=== PATIENT | male | born 1985 | race Caucasian/White ===

== ENCOUNTER 2017-01-09 03:50 | Inpatient (IN) | payer MEDICAID ==
[~2017-01-09] VITALS: Ht 180.3 cm; Wt 59.0 kg
[~2017-01-09 03:50] MED LIST: ELA10 PO; FAMO-90 PO; HYDROCODONE/ACETAMINOPHEN 5-32; ONDA4ODT1 SL; OXYC10TE14 PO
[2017-01-09 03:57] VITALS: BP 124/71
--- NOTE | 2017-01-09 04:03 | NUR ---
PT TAKEN TO BED 8
--- NOTE | 2017-01-09 04:03 | NUR ---
PATIENT PRESENTS TO ED WITH C/O MID AB PAIN RADIATING TO THE BACK X 3 DAYS . PT STATES PAIN IS CONSTANT, NON RADIATING. PT ALSO STATES HE WAS DX WITH PANCREATITIS 5 YEARS AGO. PT DENIES N/V/D; SKIN IS PINK/WARM/DRY; AAOX4 WITH EVEN AND STEADY GAIT; LUNGS CLEAR BL; HR EVEN AND REGULAR; PT DENIES ANY FEVER, CP, SOB, OR COUGH AT THIS TIME; PATIENT STATES PAIN OF 9/10 AT THIS TIME; VSS; PATIENT POSITIONED FOR COMFORT; HOB ELEVATED; BEDRAILS UP X2; BED DOWN. ER MD MADE AWARE OF PT STATUS.
[2017-01-09] MEDS ORDERED: NACL 0.9% 1,000 ML IV ONE ×2 (04:33→05:00)
[2017-01-09] MEDS ORDERED: MORPHINE SULFATE 4 MG/ML SYR IVP ONE (04:35)
[2017-01-09] MEDS ORDERED: ONDANSETRON 4 MG/2 ML VIAL IVP ONE (04:35)
[2017-01-09 04:41] LABS: BASOPHILS # (AUTO) 0.4 K/uL (0.00-0.22); BASOPHILS % (AUTO) 4.8 % (0.0-2.0); EOSINOPHILS # (AUTO) 0.2 K/uL (0-0.4); EOSINOPHILS % (AUTO) 2.5 % (0.0-4.0); HEMATOCRIT 49.7 % (36-52); LYMPHOCYTES # (AUTO) 1.8 K/uL (2.0-11.5); LYMPHOCYTES % (AUTO) 23.3 % (20.5-51.1); MEAN CORPUSCULAR HEMOGLOBIN 29 pg (27-31); MEAN CORPUSCULAR HGB CONC 32 g/dL (33-37); MEAN CORPUSCULAR VOLUME 90 fL (80-94); MONOCYTES # (AUTO) 0.8 K/uL (0.8-1.0); MONOCYTES % (AUTO) 10.9 % (1.7-9.3); NEUTROPHILS # (AUTO) 4.3 K/uL (1.8-7.7); NEUTROPHILS % (AUTO) 58.5 % (42.2-75.2); PLATELET COUNT (AUTO) 281 K/uL (140-450); RED BLOOD CELL COUNT(AUTO) 5.53 MIL/uL (4.20-6.10); RED CELL DISTRIBUTION WIDTH 12.7 % (11.6-13.7); WHITE BLOOD COUNT (AUTO) 7.5 K/uL (4.8-10.8)
[2017-01-09 04:56] LABS: ALBUMIN 4.6 g/dL (3.4-5.0); ANION GAP 10.8 (8-16); CARBON DIOXIDE 30.7 mmol/L (21-32); POTASSIUM 3.5 mmol/L (3.5-5.1); TOTAL BILIRUBIN 0.7 mg/dL (0.0-1.0)
[2017-01-09] MEDS ORDERED: KETOROLAC 30 MG/ML VIAL IVP ONE (05:10)
--- NOTE | 2017-01-09 05:19 | NUR ---
Patient will be admitted to care of DR PLUMMER. Admited to MS 112A. Will go to room 112A. Belongings list completed. Report to PAT ROWLEY .
[2017-01-09] MEDS ORDERED: MAGNESIUM HYDROXIDE 2400 MG/30 ML UDC PO PRN (05:20)
[2017-01-09] MEDS ORDERED: MORPHINE SULFATE 4 MG/ML SYR IVP PRN (05:20)
[2017-01-09] MEDS ORDERED: ACETAMINOPHEN 325 MG TAB PO PRN (05:20)
[2017-01-09] MEDS ORDERED: oxyCODONE 10 MG TABER PO SCH ×2 (05:20→07:50)
[2017-01-09] MEDS ORDERED: ONDANSETRON 4 MG ODT SL PRN (05:20)
[2017-01-09] MEDS ORDERED: LORazepam 2 MG/ML VIAL IVP PRN (05:20)
[2017-01-09] MEDS ORDERED: ONDANSETRON 4 MG/2 ML VIAL IVP PRN (05:20)
[2017-01-09] MEDS ORDERED: MORPHINE SULFATE 2 MG/ML SYR IVP PRN (05:20)
--- NOTE | 2017-01-09 05:45 | NUR ---
PATIENT ADMITTED TO THE UNIT FROM ED VIA GURNEY. PATIENT ABLE TO AMBULATE TO BED, STEADY GAIT. PATIENT IS AAOX4 ON ROOM AIR, NO SOB OR SIGN OF DISTRESS, VITAL SIGNS STABLE, SKIN INTACT, IV TO RIGHT AC PATENT AND INTACT. PATIENT C/O ABDOMINAL PAIN 01/28. STATED MORPHINE GIVEN IN THE ER DOES NOT HELP AND WANTS DILAUDED THAT HAS HELPED HIM IN THE PAST. ORIENTED PATIENT TO ROOM AND CALL LIGHT. DISCUSSED PLAN OF CARE WITH PATIENT, PT VERBALIZED UNDERSTANDING, CALL LIGHT WITHIN REACH. WILL CONTINUE TO MONITOR.
[2017-01-09] MEDS: DEXT 5% /NACL 0.9% 1,000 ML IV SCH ×2 (05:57→15:24)
[2017-01-09 06:00] VITALS: BP 127/46
--- NOTE | 2017-01-09 07:13 | NUR ---
ASSUMED CONTINUITY OF CARE. NO SIGNS AND SYMPTOMS OF ACUTE DISTRESS NOTED. INITIAL ASSESSMENT DONE. KEEP COMFORTABLE ON BED. EXPLAINED DIAGNOSIS, PLAN OF CARE, PAIN MANAGEMENT TEACHING, USE OF CALL LIGHT/BED/TV/BATHROOM. VERBALIZED UNDERSTANDING. CALL LIGHT WITHIN REACH.
--- NOTE | 2017-01-09 07:13 | NUR ---
ENDORSED PATIENT TO DAY RN AT BEDSIDE, PATIENT IN STABLE CONDITION.
--- NOTE | 2017-01-09 07:17 | NUR ---
BEDSIDE REPORT GIVEN TO KIMBER YANCEY. IVF INFUSING WELL. IN STABLE CONDITION.
[2017-01-09 07:37] LABS: PROTHROMBIN TIME 11.8 secs (10.8-13.4)
[2017-01-09 07:39] LABS: BARBITURATE, URINE NEG. ng/ml (NEG <=200); BENZODIAZEPINE, URINE NEG. ng/mL (NEG <=200); CANNABINOID, URINE POS. ng/mL (NEG <=50); COCAINE, URINE NEG. ng/mL (NEG <=300); OPIATE, URINE NEG. ng/mL (NEG <=2000); PHENCYCLIDINE SCREEN,URINE NEG. ng/mL (NEG <=25)
[2017-01-09 07:53] LABS: SALICYLATE < 2.8 mg/dL (2.8-20.0)
[2017-01-09 07:54] LABS: ACETAMINOPHEN < 0.5 ug/ml (10-30)
--- NOTE | 2017-01-09 07:59 | NUR ---
Patient's Plan of Care was discussed and reviewed with ELECTRONICS ASSEMBLER AND TESTER: BERTIN PATTON
[2017-01-09 08:00] VITALS: BP 119/82
--- NOTE | 2017-01-09 08:05 | NUR ---
PATIENT HAS BEEN SCREENED AND CATEGORIZED HIGH NUTRITION RISK. PATIENT WILL BE SEEN WITHIN 1-2 DAYS OF ADMISSION. 01/09/17-01/10/[address]
[2017-01-09] MEDS: FAMOTIDINE 20 MG TAB PO SCH ×2 (08:34→21:28)
[2017-01-09] MEDS ORDERED: HYDROmorphone 1 MG/ML AMP IVP SCH (09:30)
--- NOTE | 2017-01-09 10:09 | NUR ---
CM NOTE INITIAL REVIEW FAXED TO [facility] [phone] PH DEPT [phone] AND TO [facility] [phone]
[2017-01-09 12:00] VITALS: BP 132/82
--- NOTE | 2017-01-09 12:30 | NUR ---
WILLIAM MIXON CAME, CHECKED PT. CHART AND SEEN PT..
--- NOTE | 2017-01-09 13:52 | NUR ---
WENT TO CT VIA WHEELCHAIR. NO ACUTE DISTRESS NOTED.
--- NOTE | 2017-01-09 15:10 | NUR ---
01/09/17 RD INITIAL ASSESSMENT COMPLETED PLEASE REFER TO NUTRITION ASSESSMENT UNDER CARE ACTIVITY FOR ESTIMATED NUTRITIONAL NEEDS. 1. WHEN MEDICALLY FEASIBLE, CONSIDER INITIATING PO DIET TO START ON CLEAR LIQUID AND ADVANCE TOLERATED TO REGULAR DIET + HEALTH SHAKE 1XDAILY 2. RD TO FOLLOW UP WITHIN 2-3 DAYS; HIGH RISK ISMAEL LEE RD
[2017-01-09] MEDS: HYDROmorphone 1 MG/ML AMP IVP PRN ×2 (15:18→21:21)
--- NOTE | 2017-01-09 15:45 | NUR ---
DR. WARREN CAME, CHECKED PT. CHART, AND SEEN PT..
--- NOTE | 2017-01-09 19:20 | NUR ---
RECD. SITTING ON BED, AWAKE, A/OX4. RESPIRATION EVEN AND UNLABORED. IV OF D5NS AT 100 ML/HR INFUSING, RIGHT AG G18. PLAN OF CARE FOR THE SHIFT DISCUSSED. VERBALIZED UNDERSTANDING. PAIN IN THE ABDOMEN . OFFERED NORCO BUT REFUSED. STATED WILL WAIT FOR THE PAIN SHOT. FAMILY AT THE BEDSIDE.
[2017-01-09 20:00] VITALS: BP 116/67
--- NOTE | 2017-01-09 20:00 | NUR ---
Patient's Plan of Care was discussed and reviewed with LINK WIRE FABRIC MACHINE TENDER: KIMBER OLIVER
--- NOTE | 2017-01-09 20:25 | NUR ---
AMBULATED IN THE HALLWAY FOR 10 MINUTES.
[2017-01-09] MEDS ORDERED: AMITRIPTYLINE 10 MG TAB PO SCH (21:00)
[2017-01-09] MEDS: AMITRIPTYLINE 25 MG TAB PO SCH (21:28)
[2017-01-09] MEDS: BISACODYL 5 MG TABEC PO SCH (21:29)
--- NOTE | 2017-01-10 | NUR ---
SLEEPING COMFORTABLY IN BED.
[2017-01-10] MEDS: DEXT 5% /NACL 0.9% 1,000 ML IV SCH ×4 (02:10→21:20)
[2017-01-10 04:46] VITALS: BP 139/88
[2017-01-10] MEDS: HYDROmorphone 1 MG/ML AMP IVP PRN ×4 (05:03→21:13)
[2017-01-10 06:21] LABS: BASOPHILS # (AUTO) 0.1 K/uL (0.00-0.22); EOSINOPHILS # (AUTO) 0.1 K/uL (0-0.4); EOSINOPHILS % (AUTO) 1.5 % (0.0-4.0); HEMATOCRIT 40.4 % (36-52); HEMOGLOBIN 13.8 g/dL (12.0-18.0); LYMPHOCYTES # (AUTO) 0.7 K/uL (2.0-11.5); MEAN CORPUSCULAR HEMOGLOBIN 30 pg (27-31); MEAN CORPUSCULAR HGB CONC 34 g/dL (33-37); MEAN CORPUSCULAR VOLUME 89 fL (80-94); MONOCYTES # (AUTO) 0.6 K/uL (0.8-1.0); MONOCYTES % (AUTO) 6.6 % (1.7-9.3); NEUTROPHILS # (AUTO) 7.9 K/uL (1.8-7.7); NEUTROPHILS % (AUTO) 83.9 % (42.2-75.2); PLATELET COUNT (AUTO) 206 K/uL (140-450); RED BLOOD CELL COUNT(AUTO) 4.55 MIL/uL (4.20-6.10); RED CELL DISTRIBUTION WIDTH 12.9 % (11.6-13.7); WHITE BLOOD COUNT (AUTO) 9.4 K/uL (4.8-10.8)
[2017-01-10 06:25] LABS: ANION GAP 12.6 (8-16); CARBON DIOXIDE 26.4 mmol/L (21-32); CREATININE 0.8 mg/dL (0.7-1.3)
--- NOTE | 2017-01-10 06:55 | NUR ---
ABLE TO SLEEP WELL. COMPLAINT OF ABDOMINAL PAIN ATTENDED PROMPTLY, MEDICATED ORDERED. CONDITION REMAIN STABLE. WILL ENDORSE TO AM NURSE FOR CONTINUITY OF CARE.
[2017-01-10 07:00] LABS: AMYLASE 447 U/L (25-115)
[2017-01-10 07:25] LABS: LIPASE 4746 U/L (73-393)
--- NOTE | 2017-01-10 07:25 | NUR ---
RECEIVED PT IN BED. AWAKE. ALERT ORIENTEDX4. NO SOB NOTED. DENIES ANY PAIN OR DISCOMFORT AT THIS TIME. POSITIVE BOWEL SOUNDS NOTED ON FOUR QUADRANTS. PT AMBULATORY. SAFETY PRECAUTION IN PLACE. CALL LIGHT WITHIN REACH.
[2017-01-10 08:00] VITALS: BP 124/86
--- NOTE | 2017-01-10 08:41 | NUR ---
CM NOTE CONCURRENT REVIEW FAXED TO [facility] [phone] PH DEPT [phone] [facility] [phone] [phone]
[2017-01-10] MEDS: FAMOTIDINE 20 MG TAB PO SCH ×2 (08:54→21:07)
--- NOTE | 2017-01-10 12:10 | NUR ---
RECEIVED A CALL FROM PHARMACY REGARDING MEDICATION OXYCODONE FRO THE INDICATION AND FREQUENCY. PAGED WILLIAM MIXON. AWAITING CALL BACK. CAME TO SEE PT. AND CLARIFIED THE ORDER, WITH ORDERS MADE AND CARRIED OUT VERBAL READ BACK.
[2017-01-10] MEDS: oxyCODONE 10 MG TABER PO SCH ×2 (13:00→21:00)
--- NOTE | 2017-01-10 13:16 | NUR ---
KEN NOTE RECEIVED ORDER TO TRANSFER FOR HIGHER LEVEL OF CARE. SPOKE WITH PATIENT BEDSIDE AND HE SAID HE IS ALREADY AWARE OF THE PLAN TO TRANSFER AND HE IS AGREEABLE. FAXED ORDER AND CLINICALS TO [facility] KEN HAIDER [phone]. SPOKE WITH [facility] KEN HAIDER PH [phone]. PER KEN HAIDER, SHE WILL LOOK TO WHICH CONTRACTED FACILITY SHE COULD SEND THE PATIENT AND SHE WILL INFORM [facility] ONCE SHE HAS AN ACCEPTING CONTRACTED FACILITY AND BED AVAILABLE. GAVE HER THE NUMBER TO THE CHARGE NURSE ON THE FLOOR WHERE PATIENT IS IN CASE IT HAPPENS AT A LATER TIME TODAY. GAVE HER THE NUMBER OF DR. Steffen PLUMMER FOR DOCTOR TO DOCTOR REPORT. CHARGE NURSE SAKINA AND NURSE FRANK AWARE. WILL FOLLOW UP. Addendum: 01/10/17 at 1414 by Theodora Sotelo PER [facility] KEN HAIDER, FOR TRANSPORTATION GOING TO CONTRACTED FACILITY FOR HIGHER LEVEL OF CARE, USE [facility] PH [phone]. ASKED HER IF WE CAN USE [facility] SINCE THIS IS GOING TO BE ACUTE CARE TO ACUTE CARE FACILITY TRANSFER. PER KEN HAIDER, [facility] ALWAYS USE [facility] AND THAT [facility] WILL NOT REQUIRE AN AUTHORIZATION TO SET UP THE TRANSPORT. CHARGE NURSE PRESLEY AWARE.
--- NOTE | 2017-01-10 13:33 | NUR ---
PT REFUSED TO TAKE OXYCONTIN ACCORDING TO PT. HE TAKES THAT AT HOME AND HE DOES NOT WANT TO TAKE IT ANYMORE DUE TO IT MAKES HIS ABDOMINAL PAIN WORSE ACCORDING TO HIM.
--- NOTE | 2017-01-10 15:01 | NUR ---
KEN ROLON SPOKE WITH SD ARTEM HAIDER PH# [phone] TO FOLLOW UP ON THE TRANSFER. PER KEN HAIDER, NO ACCEPTING CONTRACTED FACILITY AT THIS TIME. CHARGE NURSE SAKINA AZUL.
[2017-01-10 16:00] VITALS: BP 132/91
--- NOTE | 2017-01-10 18:20 | NUR ---
PT NOT EATING WELL. COMPLAINING OF ABDOMINAL PAIN WHEN HE EATS OFFERED FLUIDS PT REQUESTED TO HAVE SOME JUICE. PROVIDED WITH TETRA PACKED FRUIT JUICE. TOLERATED WELL
--- NOTE | 2017-01-10 19:11 | NUR ---
PT KEPT CLEAN, DRY AND COMFORTABLE. NEEDS ATTENDED. ENDORSED TO NEXT SHIFT ON STABLE CONDITION FOR CONTINUITY OF CARE.
--- NOTE | 2017-01-10 19:12 | NUR ---
RECD. RESTING IN BED, AWAKE, A/OX4. RESPIRATION EVEN AND UNLABORED. IV OF D5 NS AT 100 ML/HR INFUSING, RIGHT AC G18. WATCHING TV. STATED NOT SO GOOD WHEN INQUIRED HOW HE IS. PLAN OF CARE FOR THE SHIFT DISCUSSED. VERBALIZED UNDERSTANDING. PAIN IN THE ABDOMEN 05/30. WILL MEDICATE ORDERED. MOTHER AT THE BEDSIDE.
[2017-01-10 20:58] VITALS: BP 133/94
[2017-01-10] MEDS: AMITRIPTYLINE 25 MG TAB PO SCH (21:07)
[2017-01-10] MEDS: BISACODYL 5 MG TABEC PO SCH (21:08)
--- NOTE | 2017-01-10 21:10 | NUR ---
DUE PO MEDICATIONS GIVEN, REFUSED OXYCODONE, STATED "I DON'T LIKE IT."
--- NOTE | 2017-01-10 23:50 | NUR ---
SLEEPING COMFORTABLY IN BED.
--- NOTE | 2017-01-11 01:30 | NUR ---
Patient's Plan of Care was discussed and reviewed with HEAD WOOD GRINDER: KIMBER OLIVER
[2017-01-11 03:17] VITALS: BP 123/77
[2017-01-11] MEDS: HYDROmorphone 1 MG/ML AMP IVP PRN ×4 (03:28→20:25)
--- NOTE | 2017-01-11 04:49 | NUR ---
SLEEPING COMFORTABLY IN BED.
[2017-01-11] MEDS: oxyCODONE 10 MG TABER PO SCH ×3 (05:00→21:00)
[2017-01-11 07:15] LABS: BASOPHILS # (AUTO) 0.1 K/uL (0.00-0.22); BASOPHILS % (AUTO) 1.5 % (0.0-2.0); EOSINOPHILS # (AUTO) 0.1 K/uL (0-0.4); EOSINOPHILS % (AUTO) 1.3 % (0.0-4.0); HEMOGLOBIN 13.4 g/dL (12.0-18.0); LYMPHOCYTES # (AUTO) 1.4 K/uL (2.0-11.5); LYMPHOCYTES % (AUTO) 21.4 % (20.5-51.1); MEAN CORPUSCULAR HEMOGLOBIN 30 pg (27-31); MEAN CORPUSCULAR HGB CONC 34 g/dL (33-37); MEAN CORPUSCULAR VOLUME 89 fL (80-94); MONOCYTES # (AUTO) 0.8 K/uL (0.8-1.0); MONOCYTES % (AUTO) 12.9 % (1.7-9.3); NEUTROPHILS # (AUTO) 4.1 K/uL (1.8-7.7); NEUTROPHILS % (AUTO) 62.9 % (42.2-75.2); PLATELET COUNT (AUTO) 193 K/uL (140-450); RED BLOOD CELL COUNT(AUTO) 4.49 MIL/uL (4.20-6.10); RED CELL DISTRIBUTION WIDTH 12.6 % (11.6-13.7); WHITE BLOOD COUNT (AUTO) 6.5 K/uL (4.8-10.8)
--- NOTE | 2017-01-11 07:15 | NUR ---
RECEIVED REPORT FROM NIGHT NURSE, PT IS AAOX4, PT IS ON RA, IV TO R FA 18G PATENT, DRY AND INTACT, INFUSING WELL. PT SKIN IS INTACT, INITIAL ASSESSMENT COMPLETED, REVIEWED PLAN OF CARE WITH PT, PT VERBALIZED UNDERSTANDING, ALL SAFETY PRECAUTIONS MET, CALL LIGHT WITHIN REACH, WILL CONTINUE TO MONITOR.
[2017-01-11] MEDS: DEXT 5% /NACL 0.9% 1,000 ML IV SCH ×3 (07:46→23:06)
[2017-01-11 07:59] LABS: AMYLASE 447 U/L (25-115); LIPASE 2761 U/L (73-393)
[2017-01-11 08:00] VITALS: BP 126/86
[2017-01-11] MEDS: FAMOTIDINE 20 MG TAB PO SCH ×2 (08:00→20:59)
--- NOTE | 2017-01-11 08:05 | NUR ---
PT IN 8/10 PAIN, PAIN MEDICATION GIVEN AND DUE MEDICATION. PT TOLERATED WELL, ALL SAFETY PRECAUTIONS MET, WILL CONTINUE TO MONITOR, CALL LIGHT WITHIN REACH.
[2017-01-11 08:29] LABS: ANION GAP 10.4 (8-16); CARBON DIOXIDE 29.2 mmol/L (21-32); CREATININE 0.8 mg/dL (0.7-1.3); POTASSIUM 3.6 mmol/L (3.5-5.1)
--- NOTE | 2017-01-11 08:50 | NUR ---
NOTE CONCURRENT REVIEW FAXED TO [facility] KEN HAIDER [phone], PH [phone] EXT [phone]/ (c) [phone] AND TO [facility] [phone] EXT [phone]. SPOKE WITH [facility] KEN HAIDER TO FOLLOW UP ON TRANSFER. PER KEN HAIDER, SHE PRESENTED THE CASE TO THEIR INTERMEDIATE SCHOOL TEACHER AND AN OUTSIDE DOCTOR ON 01/09/17 AND THEY BOTH AGREED THAT THEY DID NOT SEE ANY REASON FOR THE TRANSFER. PER KEN HAIDER, SHE SPOKE WITH DR. Steffen PLUMMER THIS MORNING 01/10/17 AND SHE WILL AGAIN PRESENT THE CASE TO HER INTERMEDIATE SCHOOL TEACHER. WILL FOLLOW UP. Addendum: 01/11/17 at 0857 by Theodora Sotelo CM CHARGE NURSE GIGI AZUL. Addendum: 01/11/17 at 0901 by Theodroa Sotelo CM CORRECTION OF ABOVE NOTE: KEN HAIDER PRESENTED THE CASE TO HER INTERMEDIATE SCHOOL TEACHER AND OUTSIDE DOCTOR ON 01/10/17 AND NOT ON 01/09/17. KEN HAIDER SPOKE WITH DR. Steffen PLUMMER ON 01/11/17 AND NOT ON 01/10/17.
--- NOTE | 2017-01-11 10:15 | NUR ---
CHECKED IN ON PT. PT RESTING COMFORTABLY IN BED. FATHER AT BEDSIDE. ALL SAFETY PRECAUTIONS MET, CALL LIGHT WITHIN REACH, WILL CONTINUE TO MONITOR.
--- NOTE | 2017-01-11 10:20 | NUR ---
MANAGED CARE MANAGER IS AT PATIENT'S BEDSIDE AT THIS TIME.
--- NOTE | 2017-01-11 10:27 | NUR ---
CM NOTE SPOKE WITH [facility] KEN HAIDER PH# [phone]. PER [facility] KEN HAIDER, THEIR IN FILE OPERATOR SAID THE PATIENT DOES NOT MEET CRITERIA AND WILL HAVE TO DO WHAT GI FIBERGLASS PRODUCT TESTER RECOMMENDED AN OUTPATIENT. SPOKE WITH DR. Steffen PLUMMER AND HE IS MADE AWARE. PER DR. Steffen PLUMMER, HE WILL CANCEL ORDER TO TRANSFER FOR HIGHER LEVEL OF CARE SINCE LIPASE LEVEL IS TRENDING DOWN. CHARGE NURSE GIGI AWARE.
--- NOTE | 2017-01-11 12:24 | NUR ---
CHECKED IN ON PT. PT STATED HE WAS IN 8/10 PAIN. PT MEDICATED PER MD ORDERS. ALL SAFETY PRECAUTIONS MET, CALL LIGHT WITHIN REACH, WILL CONTINUE TO MONITOR.
--- NOTE | 2017-01-11 13:49 | NUR ---
01/11/17 RD FOLLOW-UP ASSESSMENT COMPLETED PLEASE REFER TO NUTRITION ASSESSMENT UNDER CARE ACTIVITY FOR ESTIMATED NUTRITIONAL NEEDS. 1. CONTINUE FULL LIQUID DIET 2. CONTINUE TO ENCOURAGE INCREASED PO INTAKE TO TOLERANCE 3. RD TO FOLLOW UP 2-3 DAYS; HIGH RISK ISMAEL LEE, RON
--- NOTE | 2017-01-11 14:00 | NUR ---
CHECKED IN ON PT, PT STATED HE WANTED TO WALK. PT AMBULATED AROUND THE UNIT. PT TOLERATED WELL. NO S/S OF DISTRESS.
--- NOTE | 2017-01-11 14:10 | NUR ---
PT BACK IN BED RESTING COMFORTABLY, ALL SAFETY PRECAUTIONS MET, CALL LIGHT WITHIN REACH, WILL CONTINUE TO MONITOR
--- NOTE | 2017-01-11 15:05 | NUR ---
PT STATED HE FELT HIS "IV WAS NOT IN PLACE." ASSESSED IV, IV INTACT PATENT AND DRY, FLUSHED WITH NO RESISTANCE. PT EDUCATED ON PATENT IV, PT STATED HE STILL WANTED A NEW ONE. HALLEY MCGUIRE PLACED A NEW IV IN L AC 22 G, IV PATENT AND INFUSING WELL.
[2017-01-11 16:00] VITALS: BP 158/78
--- NOTE | 2017-01-11 16:00 | NUR ---
CHECKED IN ON PT. PT STATED HE HAD 8/10 PAIN IN THE ABDOMEN AND LOWER BACK. PT MEDICATED PER ORDERS. PT TOLERATED WELL, ALL SAFETY PRECAUTIONS MET, CALL LIGHT WITHIN REACH, WILL CONTINUE TO MONITOR.
--- NOTE | 2017-01-11 18:01 | NUR ---
PT IS RESTING IN BED, NO S/S OF RESPIRATORY DISTRESS OR DISCOMFORT NOTED, FAMILY IS AT BEDSIDE.
--- NOTE | 2017-01-11 18:52 | NUR ---
PTS ORAL INTAKE DURING 7AM-7PM SHIFT IS 480 MLS. IV FLUID TOTAL: 1200 ML. TOTAL INTAKE FOR SHIFT: 1680. PT VOIDED URINE 4 TIMES. PT DID NOT HAVE A BOWEL MOVEMENT. PT IS CONTINENT AND TAKES HIMSELF TO THE BATHROOM
--- NOTE | 2017-01-11 19:30 | NUR ---
ENDORSED PT TO HALLEY STREETER FOR CONTINUITY OF CARE, PT STABLE AT THIS TIME.
--- NOTE | 2017-01-11 19:40 | NUR ---
RECEIVED REPORT FROM AM NURSE. PT IS STABLE, AWAKE ALERT AND ORIENTED X4. MED SURG PT, AMBULATORY ON ROOM AIR. IV ACCESS ON LEFT AC 22G RUNNING FLUIDS AT 100ML/HR. PLAN OF CARE DISCUSSED, PT VERBALIZED UNDERSTANDING. BED ON LOW POSITION, CALL LIGHT WITHIN REACH. WILL CONTINUE TO MONITOR.
--- NOTE | 2017-01-11 20:20 | NUR ---
AMBULATED TO THE HALLWAY. FAMILY WITH PT.
[2017-01-11 20:55] VITALS: BP 153/75
[2017-01-11] MEDS: BISACODYL 5 MG TABEC PO SCH (20:58)
[2017-01-11] MEDS: AMITRIPTYLINE 25 MG TAB PO SCH (20:59)
[2017-01-11] MEDS: SENNA 8.6 MG TAB PO SCH (20:59)
[2017-01-12 00:15] VITALS: BP 129/89
[2017-01-12] MEDS: HYDROmorphone 1 MG/ML AMP IVP PRN ×6 (00:47→21:33)
--- NOTE | 2017-01-12 03:00 | NUR ---
MADE ROUNDS. ASLEEP. NO S/S OF ANY DISCOMFORT NOTED.
[2017-01-12 04:50] VITALS: BP 133/80
[2017-01-12] MEDS: oxyCODONE 10 MG TABER PO SCH (04:59)
[2017-01-12 06:00] LABS: BASOPHILS # (AUTO) 0.2 K/uL (0.00-0.22); BASOPHILS % (AUTO) 3.7 % (0.0-2.0); EOSINOPHILS # (AUTO) 0.1 K/uL (0-0.4); EOSINOPHILS % (AUTO) 2.1 % (0.0-4.0); HEMATOCRIT 44.8 % (36-52); LYMPHOCYTES # (AUTO) 1.9 K/uL (2.0-11.5); LYMPHOCYTES % (AUTO) 33.6 % (20.5-51.1); MEAN CORPUSCULAR HEMOGLOBIN 30 pg (27-31); MEAN CORPUSCULAR HGB CONC 34 g/dL (33-37); MEAN CORPUSCULAR VOLUME 88 fL (80-94); MONOCYTES # (AUTO) 0.5 K/uL (0.8-1.0); MONOCYTES % (AUTO) 9.5 % (1.7-9.3); NEUTROPHILS % (AUTO) 51.1 % (42.2-75.2); PLATELET COUNT (AUTO) 211 K/uL (140-450); RED BLOOD CELL COUNT(AUTO) 5.07 MIL/uL (4.20-6.10); RED CELL DISTRIBUTION WIDTH 12.4 % (11.6-13.7); WHITE BLOOD COUNT (AUTO) 5.7 K/uL (4.8-10.8)
[2017-01-12 06:09] LABS: ANION GAP 11.7 (8-16); CARBON DIOXIDE 29.5 mmol/L (21-32); CREATININE 0.8 mg/dL (0.7-1.3); POTASSIUM 3.2 mmol/L (3.5-5.1)
[2017-01-12 06:14] LABS: AMYLASE 183 U/L (25-115); LIPASE 485 U/L (73-393)
--- NOTE | 2017-01-12 07:37 | NUR ---
ENDORSED PT TO AM NURSE FOR CONTINUITY OF CARE. PT IS STABLE AT THIS TIME.
--- NOTE | 2017-01-12 07:38 | NUR ---
RECEIVED BEDSIDE REPORT FROM DIRECTOR OF DISTANCE LEARNING RN. PT AWAKE AND ALERT, NO SIGNS OF ACUTE DISTRESS. BOWEL SOUNDS ACTIVE IN ALL 4 QUADRANTS. BOWEL AND BLADDER CONTINENCE. AMBULATORY WITH BRP. SKIN INTACT. IV PATENT AND ASYMPTOMATIC. PT COMPLAINT OF PAIN 8/10 IN LT. LOWER ABD AND LT. LOWER BACK, WILL MEDICATE WITH PRNS ORDERED. RE-ORIENTED PATIENT TO HOSPITAL AND TO UNIT, PT VERBALIZED UNDERSTANDING. BED IN LOW POSITION WITH BILATERAL HALF SIDE RAILS UP, CALL LIGHT WITHIN REACH. WILL CONTINUE TO MONITOR.
[2017-01-12 08:00] VITALS: BP 131/87
[2017-01-12] MEDS: FAMOTIDINE 20 MG TAB PO SCH ×2 (08:30→20:25)
[2017-01-12] MEDS: SENNA 8.6 MG TAB PO SCH ×2 (08:30→20:25)
--- NOTE | 2017-01-12 09:40 | NUR ---
PT SITTING UPRIGHT IN BED, NO SIGNS OF ACUTE DISTRESS. BED IN LOW POSITION WITH BILATERAL HALF SIDE RAILS UP, CALL LIGHT WITHIN REACH. WILL CONTINUE TO MONITOR.
--- NOTE | 2017-01-12 09:52 | NUR ---
CM NOTE CONCURRENT REVIEW FAXED TO MD ARTEM HAIDER [phone], PH [phone] [phone]/ (C) [phone] AND TO [facility] [phone] PH [phone] EXT [phone].
[2017-01-12] MEDS: HYDROcodone/APAP 5/325 MG 1 TAB TAB PO PRN ×3 (10:31→18:48)
--- NOTE | 2017-01-12 11:29 | NUR ---
PT WALKING UP AND DOWN ARANDA, NO SIGNS OF ACUTE DISTRESS. WILL CONTINUE TO MONITOR.
[2017-01-12] MEDS: DEXT 5% /NACL 0.9% 1,000 ML IV SCH ×2 (11:49→23:44)
[2017-01-12] MEDS ORDERED: oxyCODONE 10 MG TABER PO SCH (13:00)
[2017-01-12] MEDS ORDERED: POTASSIUM CHLORIDE 10 MEQ TABER PO SCH (15:00)
--- NOTE | 2017-01-12 15:16 | NUR ---
SPOKE WITH DR PLUMMER REGARDING PATIENT POTASSIUM OF 3.2. RECEIVED NEW ORDER FOR K-DUR 40MEQ. ADMINISTERED. WILL CONTINUE TO MONITOR.
[2017-01-12 16:00] VITALS: BP 142/89
--- NOTE | 2017-01-12 17:00 | NUR ---
ESCORTED PATIENT TO SHOWER, NO SIGNS OF ACUTE DISTRESS. WILL CONTINUE TO MONITOR.
--- NOTE | 2017-01-12 19:19 | NUR ---
PT AWAKE AND ALERT, NO SIGNS OF ACUTE DISTRESS. ENDORSED TO NETTING INSPECTOR NURSE FOR CONTINUITY OF CARE.
--- NOTE | 2017-01-12 19:20 | NUR ---
RECEIVED REPORT FROM AM NURSE. PT AOX4, WITH FAMILY AT BEDSIDE. NO S/S OF DISTRESS. NO COMPLAINTS OF PAIN AT THIS TIME. BOWEL SOUNDS ACTIVE IN ALL FOUR QUADRANTS. AMBULATORY. SKIN INTACT. IV TO THE LEFT AC 22 G, INTACT AND PATENT. REORIENTED PATIENT TO THE UNIT, VERBALIZED UNDERSTANDING. WILL CONTINUE TO MONITOR. CALL LIGHT WITHIN REACH. SAFETY CHECKS IN PLACE.
--- NOTE | 2017-01-12 20:20 | NUR ---
PATIENT SEEN AMBULATING AROUND THE ARANDA. NO S/S OF DISTRESS. WILL CONTINUE TO MONITOR.
[2017-01-12] MEDS: BISACODYL 5 MG TABEC PO SCH (20:25)
--- NOTE | 2017-01-12 20:30 | NUR ---
DUE MEDS GIVEN, WELL TOLERATED BY PATIENT. WILL CONTINUE TO MONITOR. ALL NEEDS ATTENDED. CALL LIGHT WITHIN REACH. SAFETY CHECKS IN PLACE.
[2017-01-12] MEDS ORDERED: AMITRIPTYLINE 25 MG TAB PO SCH (21:00)
--- NOTE | 2017-01-12 21:33 | NUR ---
COMPLAINED OF ABDOMINAL PAIN 12/28. GAVE DILAUDID PRN. WILL CONTINUE TO MONITOR FOR ANY CHANGES.
--- NOTE | 2017-01-12 23:45 | NUR ---
IV FLUIDS FINISHED, HANGED A NEW BAG OF DEXTROSE 5% NACL.
[2017-01-13] VITALS: BP 129/78
--- NOTE | 2017-01-13 | NUR ---
VITAL SIGNS STABLE. NO S/S OF DISTRESS. NO COMPLAINTS OF PAIN. WILL CONTINUE TO MONITOR. CALL LIGHT WITHIN REACH. SAFETY CHECKS IN PLACE.
[2017-01-13] MEDS: HYDROmorphone 1 MG/ML AMP IVP PRN ×3 (01:36→09:40)
--- NOTE | 2017-01-13 01:36 | NUR ---
COMPLAINED OF ABDOMINAL PAIN OF 9/10. MEDICATED WITH DILAUDID PRN. NO S/S OF DISTRESS. WILL CONTINUE TO MONITOR. ALL NEEDS ATTENDED. CALL LIGHT WITHIN REACH. SAFETY CHECKS IN PLACE.
[2017-01-13 06:01] LABS: HEMATOCRIT 44.2 % (36-52); HEMOGLOBIN 14.7 g/dL (12.0-18.0); MEAN CORPUSCULAR HEMOGLOBIN 30 pg (27-31); MEAN CORPUSCULAR HGB CONC 33 g/dL (33-37); MEAN CORPUSCULAR VOLUME 89 fL (80-94); PLATELET COUNT (AUTO) 226 K/uL (140-450); RED BLOOD CELL COUNT(AUTO) 4.96 MIL/uL (4.20-6.10); RED CELL DISTRIBUTION WIDTH 12.6 % (11.6-13.7); WHITE BLOOD COUNT (AUTO) 4.9 K/uL (4.8-10.8)
[2017-01-13 06:23] LABS: ANION GAP 11.7 (8-16); CARBON DIOXIDE 31.5 mmol/L (21-32); CREATININE 0.9 mg/dL (0.7-1.3); POTASSIUM 4.2 mmol/L (3.5-5.1)
[2017-01-13 06:30] LABS: AMYLASE 114 U/L (25-115); LIPASE 492 U/L (73-393)
--- NOTE | 2017-01-13 07:15 | NUR ---
ENDORSED TO AM SHIFT FOR CONTINUITY OF CARE IN STABLE CONDITION.
--- NOTE | 2017-01-13 07:16 | NUR ---
RECEIVED REPORT FROM TECHNICAL INFORMATION SPECIALIST NURSE AT BEDSIDE FOR CONTINUITY OF CARE. PT IS AWAKE AND ORIENTED. INTRODUCED SELF TO PT AND UPDATED BOARD. PT IS REQUESTING PAIN MEDICATIONS. PAIN SCALE 5/10. WILL RETURN WITH PAIN AND SCHEDULED MEDS.
[2017-01-13 07:24] LABS: EOSINOPHILS % (MANUAL) 5 % (0-4); LYMPHOCYTES % (MANUAL) 27 % (20-46); MONOCYTES % (MANUAL) 11 % (5-12)
[2017-01-13 07:39] VITALS: BP 146/92
[2017-01-13] MEDS ORDERED: AMYLASE/LIPASE/PROTEASE 1 CAPDR PO SCH (08:00)
[2017-01-13] MEDS: FAMOTIDINE 20 MG TAB PO SCH (08:01)
[2017-01-13] MEDS: HYDROcodone/APAP 5/325 MG 1 TAB TAB PO PRN (08:02)
[2017-01-13] MEDS: SENNA 8.6 MG TAB PO SCH (08:02)
--- NOTE | 2017-01-13 08:02 | NUR ---
ADMINISTERED NORCO FOR PAIN. PT STATES PAIN LEVEL 5/10. ADMINISTERED SCHEDULED MORNING MEDS. PT TOLERATED WELL. PT IS A/O X4. AMBULATES AND BRP. VS ARE WNL. PT IS ON RA. IV IS ON LEFT AC 22G D5NS AT 100ML/HR. SKIN IS INTACT. PT HAS NO OTHER COMPLAINTS AT THIS TIME. WILL CONTINUE TO MONITOR PT.
[2017-01-13] MEDS: DEXT 5% /NACL 0.9% 1,000 ML IV SCH (09:20)
[2017-01-13] MEDS ORDERED: [UNRECOGNIZED DRUG - CODE] PO (09:39)
[2017-01-13] MEDS ORDERED: ELA25 PO (09:39)
[2017-01-13] MEDS ORDERED: BISA5TAB79 PO (09:39)
[2017-01-13] MEDS ORDERED: FAMO-90 PO (09:39)
[2017-01-13] MEDS ORDERED: ONDA4ODT1 SL (09:39)
[2017-01-13] MEDS ORDERED: [UNRECOGNIZED DRUG - CODE] PO (09:39)
[2017-01-13] MEDS ORDERED: HYDR2TAB6 PO (09:39)
[2017-01-13] MEDS ORDERED: SENN8.6T99 PO (09:39)
--- NOTE | 2017-01-13 09:40 | NUR ---
PT PAIN SCALE WAS 7/10. ADMINISTERED DILAUDID FOR PAIN. PT TOLERATED WELL. FAMILY AT BEDSIDE. INFORMED PT OF D/C TODAY. PT IS AWARE AND WILL CALL FAMILY MEMBER FOR REACTOR OPERATOR AT TIME OF DISCHARGE.
--- NOTE | 2017-01-13 10:30 | NUR ---
GAVE D/C INSTRUCTIONS. ANSWERED ALL QUESTIONS. PT VERBALIZED UNDERSTANDING. PT IS IN STABLE CONDITION. PAIN IS BETTER AFTER DILAUDID. WILL LET ME KNOW WHEN PT HE'S RIDE GETS HERE.
--- NOTE | 2017-01-13 10:45 | NUR ---
REMOVED IV FROM LEFT AC. IV CATHETER INTACT. APPLIED PRESSURE TO SITE. NO BLEEDING NOTED. ID BANDS REMOVED. PT SIGNED DISCHARGE FORMS AND RECEIVED D/C INSTRUCTIONS AND PRESCRIPTIONS. PT WILL CHANGE INTO CLOTHES AND COLLECT PERSONAL BELONGINGS. PT IS WAITING FOR MOM TO SQL SERVER ARCHITECT. WILL CALL WHEN SHE ARRIVES.
--- NOTE | 2017-01-13 11:00 | NUR ---
PT WHEELED OUT TO THE FRONT OF THE LOBBY BY RN WITH FAMILY AT HIS SIDE. HE HAS HIS PERSONAL BELONGINGS WITH HIM. HE IS IN STABLE CONDITION.
== END 2017-01-13 11:00 | disposition home or self-care (01) | DRG 282 ==
LOC: MED 03:50 → MTU 05:28
PROVIDERS: ADMIT Preventive Medicine Preventive Medicine/Occupational Environmental Medicine; ATTEND Preventive Medicine Preventive Medicine/Occupational Environmental Medicine
DX: K85.90 Acute pancreatitis without necrosis or infection, unspecified (principal); F11.20 Opioid dependence, uncomplicated; K86.1 Other chronic pancreatitis; E78.5 Hyperlipidemia, unspecified; G89.4 Chronic pain syndrome; F12.10 Cannabis abuse, uncomplicated; F10.10 Alcohol abuse, uncomplicated; Z79.899 Other long term (current) drug therapy; Z76.5 Malingerer [conscious simulation]
CPT/HCPCS: 36415; 74150; 76705; 80048; 80053; 80305; 82150; 83690; 84478; 85025; 85610; 87081; 96374; 96375; 99285; G0480; G0482; J1170; J1885; J2270; J2405; J7030; J7042; Q0092

== ENCOUNTER 2017-01-25 15:09 | Emergency (ER) | payer MEDICAID ==
[~2017-01-25] VITALS: Ht 177.8 cm; Wt 58.3 kg
[~2017-01-25 15:09] MED LIST changes: +BISA5TAB79 PO; -ELA10 PO; +ELA25 PO; +HYDR2TAB6 PO; -HYDROCODONE/ACETAMINOPHEN 5-32; -OXYC10TE14 PO; +SENN8.6T99 PO; +[UNRECOGNIZED DRUG - CODE] PO; +[UNRECOGNIZED DRUG - CODE] PO
[2017-01-25 15:54] VITALS: BP 116/86
--- NOTE | 2017-01-25 18:57 | NUR ---
Patient to bed 06.
--- NOTE | 2017-01-25 19:10 | NUR ---
PATIENT PRESENTS TO ED WITH C/O LLQ PAIN AND BACK PAIN. PT DENIES N/V/D; SKIN IS PINK/WARM/DRY; AAOX4 WITH EVEN AND STEADY GAIT; LUNGS CLEAR BL; HR EVEN AND REGULAR; PT DENIES ANY FEVER, CP, SOB, OR COUGH AT THIS TIME; PATIENT STATES PAIN OF 9/10 AT THIS TIME; VSS; PATIENT POSITIONED FOR COMFORT; HOB ELEVATED; BEDRAILS UP X2; BED DOWN. ER MD MADE AWARE OF PT STATUS.
[2017-01-25] MEDS ORDERED: KETOROLAC 60 MG/2 ML VIAL IM ONE (19:40)
[2017-01-25 21:20] VITALS: BP 116/86
--- NOTE | 2017-01-25 21:20 | NUR ---
Patient discharged with v/s stable. Written and verbal after care instructions given and explained. Patient alert, oriented and verbalized understanding of instructions. Ambulatory with steady gait. All questions addressed prior to discharge. ID band removed. Patient advised to follow up with PMD. Rx of TRAMADOL AND COLACE given. Patient educated on indication of medication including possible reaction and side effects. Opportunity to ask questions provided and answered.
== END 2017-01-25 21:24 | disposition home or self-care (01) ==
LOC: MED 15:26
DX: R10.32 Left lower quadrant pain (principal); R03.0 Elevated blood-pressure reading, without diagnosis of hypertension
CPT/HCPCS: 74176; 96372; 99284; J1885

== ENCOUNTER 2017-08-08 19:16 | Inpatient (IN) | payer MEDICAID ==
[~2017-08-08] VITALS: Ht 180.3 cm; Wt 59.0 kg
[~2017-08-08 19:16] MED LIST changes: +SENN-89 PO; -SENN8.6T99 PO; +[UNRECOGNIZED DRUG - CODE] PO; -[UNRECOGNIZED DRUG - CODE] PO
[2017-08-08 19:29] VITALS: BP 132/86
--- NOTE | 2017-08-08 19:30 | NUR ---
RECEIVED REPORT FROM CODING ADVISOR, PT IS A/OX4, ON ROOM AIR. PT GOT TO UNIT VIA GURNEY AND AMBULATED WITH STEADY GAIT TO BED. PT HAS 20G IV TO LEFT FOREARM. SKIN IS INTACT. UPDATED BOARD. DISCUSSED PLAN OF CARE WITH PT, PT VERBALIZED UNDERSTANDING. VITAL SIGNS WITHIN NORMAL LIMITS. PT IN STABLE CONDITION, NO SIGNS OF DISTRESS NOTED. BED IN LOWEST POSITION, CALL LIGHT WITHIN REACH. WILL CONTINUE TO MONITOR.
--- NOTE | 2017-08-08 19:38 | NUR ---
TO LOBBY, A/W BED, STABLE, ERMD NOTED
--- NOTE | 2017-08-08 20:11 | NUR ---
TO ER CHAIR D
--- NOTE | 2017-08-08 20:20 | NUR ---
Pt presents to ED with left upper/lower abdominal, constant, pain that radiates to left lower back x3 days. Pain 8/10. Pt states eating increases pain. Abdomen tender to palpation. Pt states Hx of pancreatitis and requests check up. VSS. A&Ox4. ER MD aware. Continue to monitor.
--- NOTE | 2017-08-08 20:32 | NUR ---
Escorted to radiology via wheel chair with tech.
[2017-08-08 20:41] LABS: BASOPHILS # (AUTO) 0.4 K/uL (0.00-0.22); HEMATOCRIT 44.3 % (36-52); HEMOGLOBIN 14.5 g/dL (12.0-18.0); LYMPHOCYTES # (AUTO) 1.6 K/uL (2.0-11.5); MEAN CORPUSCULAR HEMOGLOBIN 29 pg (27-31); MEAN CORPUSCULAR HGB CONC 33 g/dL (33-37); MEAN CORPUSCULAR VOLUME 88 fL (80-94); MONOCYTES # (AUTO) 0.7 K/uL (0.8-1.0); NEUTROPHILS # (AUTO) 3.8 K/uL (1.8-7.7); PLATELET COUNT (AUTO) 257 K/uL (140-450); RED BLOOD CELL COUNT(AUTO) 5.06 MIL/uL (4.20-6.10); RED CELL DISTRIBUTION WIDTH 12.4 % (11.6-13.7); WHITE BLOOD COUNT (AUTO) 6.5 K/uL (4.8-10.8)
[2017-08-08 20:45] LABS: APPEARANCE,URINE CLEAR (CLEAR); BILIRUBIN,URINE NEGATIVE (NEGATIVE); BLOOD, URINE NEGATIVE (NEGATIVE); COLOR,URINE YELLOW (YELLOW); LEUKOCYTE ESTERASE ,URINE NEGATIVE (NEGATIVE); NITRITE, URINE NEGATIVE (NEGATIVE); UGLUCOSE NEGATIVE (NEGATIVE)
[2017-08-08 21:02] LABS: ALBUMIN 4.6 g/dL (3.4-5.0); ANION GAP 14.8 (8-16); CARBON DIOXIDE 25.9 mmol/L (21-32); POTASSIUM 3.7 mmol/L (3.5-5.1); TOTAL BILIRUBIN 0.7 mg/dL (0.0-1.0)
[2017-08-08] MEDS ORDERED: NACL 0.9% 1,000 ML IV ONE (21:35)
--- NOTE | 2017-08-08 21:58 | NUR ---
Pt placed in bed [address] on access manager.
[2017-08-08] MEDS ORDERED: TRAM50TA1 PO (21:59)
[2017-08-08] MEDS ORDERED: AMYL-13 PO (21:59)
[2017-08-08] MEDS ORDERED: ACETAMINOPHEN 325 MG TAB PO PRN (22:15)
[2017-08-08] MEDS ORDERED: HYDROcodone/APAP 7.5/325 MG 1 TAB PO PRN (22:15)
[2017-08-08] MEDS ORDERED: DOCUSATE SODIUM 100 MG GELCAP PO PRN (22:15)
[2017-08-08] MEDS ORDERED: ONDANSETRON 4 MG/2 ML VIAL IM/IVP PRN (22:15)
[2017-08-08] MEDS ORDERED: MEPERIDINE 25 MG/ML SYR IVP PRN (22:15)
[2017-08-08 22:39] LABS: BARBITURATE, URINE NEG. ng/ml (NEG <=200); BENZODIAZEPINE, URINE NEG. ng/mL (NEG <=200); CANNABINOID, URINE POS. ng/mL (NEG <=50); COCAINE, URINE NEG. ng/mL (NEG <=300); OPIATE, URINE POS. ng/mL (NEG <=2000); PHENCYCLIDINE SCREEN,URINE NEG. ng/mL (NEG <=25)
--- NOTE | 2017-08-08 22:40 | NUR ---
Report given and care transfered to Megha RN room 112B.
[2017-08-08 22:49] LABS: CHOL/HDL RATIO 2.5 (1-4.5); PHOSPHORUS 3.2 mg/dL (2.5-4.9); THYROID STIMULATING HORMONE 1.39 uIU/mL (0.34-3.74)
[2017-08-08 23:00] VITALS: BP 120/87
[2017-08-08] MEDS: NACL 0.9% 1,000 ML IV SCH (23:33)
[2017-08-08] MEDS ORDERED: HYDROmorphone PFS 2 MG/ML SYR IVP PRN (23:35)
--- NOTE | 2017-08-09 | NUR ---
VITAL SIGNS WITHIN NORMAL LIMITS. PT IN STABLE CONDITION, NO SIGNS OF DISTRESS NOTED. BED IN LOWEST POSITION, CALL LIGHT WITHIN REACH. WILL CONTINUE TO MONITOR.
--- NOTE | 2017-08-09 01:05 | NUR ---
ADMINISTERED PAIN MEDICATION, PT TOLERATED WELL. WILL CONTINUE TO MONITOR.
[2017-08-09 04:00] VITALS: BP 122/73
--- NOTE | 2017-08-09 04:00 | NUR ---
PT IN STABLE CONDITION, NO SIGNS OF DISTRESS NOTED. BED IN LOWEST POSITION, CALL LIGHT WITHIN REACH. WILL CONTINUE TO MONITOR.
[2017-08-09] MEDS: NACL 0.9% 1,000 ML IV SCH (04:44)
--- NOTE | 2017-08-09 06:00 | NUR ---
SPOKE TO DR RITCHIE ABOUT PT REQUESTING DILAUDID AGAIN, AND HEART RATE GOING DOWN TO 42 PREVIOUSLY. SAID HE WAS GOING TO D/C DILAUDID.
--- NOTE | 2017-08-09 06:18 | NUR ---
TOLD PT DR SAID TO WAIT FOR PAIN MEDICATION TO SEE IF HEART RATE IMPROVES, PLUS IT IS NOT TIME FOR PAIN MEDICATION, PT VERBALIZED UNDERSTANDING.
[2017-08-09 07:45] LABS: HEMATOCRIT 38.8 % (36-52); HEMOGLOBIN 13.3 g/dL (12.0-18.0); MEAN CORPUSCULAR HEMOGLOBIN 30 pg (27-31); MEAN CORPUSCULAR HGB CONC 34 g/dL (33-37); MEAN CORPUSCULAR VOLUME 87 fL (80-94); PLATELET COUNT (AUTO) 177 K/uL (140-450); RED BLOOD CELL COUNT(AUTO) 4.43 MIL/uL (4.20-6.10); RED CELL DISTRIBUTION WIDTH 12.3 % (11.6-13.7); WHITE BLOOD COUNT (AUTO) 6.5 K/uL (4.8-10.8)
[2017-08-09] MEDS ORDERED: AMYLASE/LIPASE/PROTEASE 1 CAPDR PO SCH (08:00)
[2017-08-09 08:11] LABS: ANION GAP 13.1 (8-16); CARBON DIOXIDE 26.2 mmol/L (21-32); CREATININE 0.9 mg/dL (0.7-1.3); POTASSIUM 4.3 mmol/L (3.5-5.1)
[2017-08-09 08:26] LABS: LYMPHOCYTES % (MANUAL) 38 % (20-46); MONOCYTES % (MANUAL) 8 % (5-12)
--- NOTE | 2017-08-09 08:30 | NUR ---
PT ASKED FOR DILAUDID, WHEN I SAID IT WAS DISCONTINUED, PT SAID HE DIDN'T WANT TO TRY ANYTHING ELSE BECAUSE ONLY DILAUDID WORKS AND IF HE'S NOT GOING TO GET SOMETHING THAT HELPS HE IS LEAVING AGAINST MEDICAL ADVICE. TRIED TO EXPLAIN TO PT THAT IT WAS AFFECTING HIS HEART RATE BY SLOWING IT DOWN AND PT REFUSED TO LISTEN, HE JUST KEPT REPEATING "NO, IT'S THE ONLY THING THAT WORKED MY HEART RATE IS FINE. I WOULD GET THAT ALL THE OTHER TIMES I WOULD COME IN FOR THE SAME THING." PT SAID HE MADE UP HIS MIND AND DID NOT WANT TO KEEP REPEATING HIMSELF. PT LEFT AMA, INFORMED DR HENDRIX AND SHE SAID OK. PT DID NOT WANT TO WAIT TO SEE DOCTOR. REMOVED IV AND TELE MONITOR NUMBER 8, REMOVED ARMBAND AND PT CHANGED INTO HIS CLOTHES AND LEFT THE UNIT WALKING WITH STEADY GAIT, STABLE.
[2017-08-09 08:51] VITALS: BP 121/76
[2017-08-09] MEDS ORDERED: FAMOTIDINE 20 MG TAB PO SCH (09:00)
--- NOTE | 2017-08-09 10:42 | NUR ---
PATIENT HAS BEEN SCREENED AND CATEGORIZED HIGH NUTRITION RISK. PATIENT WILL BE SEEN WITHIN 1-2 DAYS OF ADMISSION. 08/09/17 - 08/10/[address]
--- NOTE | 2017-08-09 11:58 | NUR ---
CM NOTE INITIAL REVIEW AND DISCHARGE SUMMARY FAXED TO [facility] [phone] PH# [phone] AND TO [facility] [phone] PH# [phone] ARTURO Luis
[2017-08-09] MEDS ORDERED: AMITRIPTYLINE 25 MG TAB PO SCH (21:00)
[2017-08-10 06:29] LABS: T4 (THYROXINE) 8.1 ug/dL (4.5-12.0)
== END 2017-08-09 08:30 | disposition left against medical advice (07) | DRG 282 ==
LOC: MED 19:16 → MTU 22:11
PROVIDERS: ADMIT Student in an Organized Health Care Education/Training Program; ATTEND Student in an Organized Health Care Education/Training Program
DX: K85.90 Acute pancreatitis without necrosis or infection, unspecified (principal); R00.1 Bradycardia, unspecified; F32.9 Major depressive disorder, single episode, unspecified; K44.9 Diaphragmatic hernia without obstruction or gangrene; Z53.21 Procedure and treatment not carried out due to patient leaving prior to being seen by health care provider; K86.1 Other chronic pancreatitis; F11.10 Opioid abuse, uncomplicated; F12.10 Cannabis abuse, uncomplicated; Z88.6 Allergy status to analgesic agent; Z88.5 Allergy status to narcotic agent; Z79.899 Other long term (current) drug therapy; Y92.89 Other specified places as the place of occurrence of the external cause
CPT/HCPCS: 36415; 80048; 80053; 80305; 81003; 82140; 82150; 82550; 83036; 83690; 83735; 84100; 84436; 84443; 84479; 85025; 85610; 85730; 87081; 93005; 99285; J1170; J7030

== ENCOUNTER 2017-10-21 10:44 | Emergency (ER) | payer MEDICAID ==
[~2017-10-21] VITALS: Ht 180.3 cm; Wt 59.9 kg
[~2017-10-21 10:44] MED LIST changes: +AMYL-13 PO; +TRAM50TA1 PO
[2017-10-21 10:56] VITALS: BP 121/79
--- NOTE | 2017-10-21 10:59 | NUR ---
pt ambuloates to bed 11 at this time w/ steady gait.
--- NOTE | 2017-10-21 10:59 | NUR ---
gave report to HALLEY Parks.
[2017-10-21] MEDS ORDERED: NACL 0.9% 1,000 ML IV SCH (11:07)
--- NOTE | 2017-10-21 11:11 | NUR ---
32 yo m bib self w/ c/o constant left upper and lower abdomen pain x 4 days. Patient also reports of lack of appetite, blurry vision to left eye, and weakness. denies n/v/d/fever/chills. abd soft, tender to palpation. rr even and unlabored.lungs bilaterally clear. a&o x4. gcs 15. cms intact. er md Jewell notified. pt needs met. safety precautions in place. will continue to monitor. GI consultation on 10/19/17 with Mary STROUD.
[2017-10-21] MEDS ORDERED: MORPHINE SULFATE 4 MG/ML SYR IVP ONE ×2 (11:15→13:55)
[2017-10-21] MEDS ORDERED: ONDANSETRON 4 MG/2 ML VIAL IVP ONE (11:15)
[2017-10-21 11:35] LABS: APPEARANCE,URINE CLEAR (CLEAR); BILIRUBIN,URINE NEGATIVE (NEGATIVE); BLOOD, URINE NEGATIVE (NEGATIVE); COLOR,URINE YELLOW (YELLOW); LEUKOCYTE ESTERASE ,URINE NEGATIVE (NEGATIVE); NITRITE, URINE NEGATIVE (NEGATIVE); PH,URINE 7.5 (5.0-9.0); UGLUCOSE NEGATIVE (NEGATIVE)
[2017-10-21 11:36] LABS: BASOPHILS # (AUTO) 0.1 K/uL (0.00-0.22); BASOPHILS % (AUTO) 1.2 % (0.0-2.0); EOSINOPHILS # (AUTO) 0.1 K/uL (0-0.4); EOSINOPHILS % (AUTO) 1.1 % (0.0-4.0); HEMATOCRIT 45.5 % (36-52); HEMOGLOBIN 15.3 g/dL (12.0-18.0); LYMPHOCYTES # (AUTO) 1.3 K/uL (2.0-11.5); MEAN CORPUSCULAR HEMOGLOBIN 29 pg (27-31); MEAN CORPUSCULAR HGB CONC 34 g/dL (33-37); MEAN CORPUSCULAR VOLUME 87.5 fL (80-94); MONOCYTES # (AUTO) 0.4 K/uL (0.8-1.0); MONOCYTES % (AUTO) 8.3 % (1.7-9.3); NEUTROPHILS # (AUTO) 3.2 K/uL (1.8-7.7); NEUTROPHILS % (AUTO) 63.4 % (42.2-75.2); PLATELET COUNT (AUTO) 236 K/uL (140-450); RED BLOOD CELL COUNT(AUTO) 5.19 MIL/uL (4.20-6.10); RED CELL DISTRIBUTION WIDTH 12.9 % (11.6-13.7)
[2017-10-21 11:43] LABS: BARBITURATE, URINE NEG. ng/ml (NEG <=200); BENZODIAZEPINE, URINE POS. ng/mL (NEG <=200); CANNABINOID, URINE POS. ng/mL (NEG <=50); COCAINE, URINE NEG. ng/mL (NEG <=300); OPIATE, URINE NEG. ng/mL (NEG <=2000); PHENCYCLIDINE SCREEN,URINE NEG. ng/mL (NEG <=25)
[2017-10-21 11:45] LABS: ANION GAP 11.5 (8-16); CARBON DIOXIDE 29.5 mmol/L (21-32); CREATININE 1.2 mg/dL (0.7-1.3)
[2017-10-21 11:52] LABS: ALBUMIN 4.3 g/dL (3.4-5.0); TOTAL BILIRUBIN 0.7 mg/dL (0.0-1.0)
--- NOTE | 2017-10-21 12:30 | NUR ---
PT RESTING COMFORTABLY IN [facility] AT THIS TIME. WILL CONTINUE TO MONITOR.
--- NOTE | 2017-10-21 13:50 | NUR ---
ER MD RE-EVALUATING PT AT BEDSIDE AT THIS TIME. WILL CONTINUE TO MONITOR.
--- NOTE | 2017-10-21 14:33 | NUR ---
PO CHALLENGE INITIATED. WILL CONTINUE TO MONITOR.
[2017-10-21 15:43] VITALS: BP 113/68
--- NOTE | 2017-10-21 15:44 | NUR ---
Patient discharged with v/s stable. Written and verbal after care instructions given and explained. Patient alert, oriented and verbalized understanding of instructions. Ambulatory with steady gait. All questions addressed prior to discharge. ID band removed. Patient advised to follow up with PMD. Rx of PERCOCET given. Patient educated on indication of medication including possible reaction and side effects. Opportunity to ask questions provided and answered.
== END 2017-10-21 15:44 | disposition home or self-care (01) ==
LOC: MED 10:44
DX: K86.1 Other chronic pancreatitis (principal); F12.10 Cannabis abuse, uncomplicated; Z79.899 Other long term (current) drug therapy; Z88.8 Allergy status to other drugs, medicaments and biological substances
CPT/HCPCS: 36415; 74176; 80053; 80305; 81003; 82150; 83690; 85025; 96374; 96375; 96376; 99285; J2270; J2405

== ENCOUNTER 2017-11-01 21:02 | Emergency (ER) | payer MEDICAID ==
[~2017-11-01] VITALS: Ht 180.3 cm; Wt 59.0 kg
[2017-11-01 21:19] VITALS: BP 138/84
[2017-11-01 22:23] LABS: HEMOGLOBIN 16.1 g/dL (12.0-18.0); WHITE BLOOD COUNT (AUTO) 8.5 K/uL (4.8-10.8)
[2017-11-01 22:29] LABS: HEMATOCRIT 46.3 % (36-52); MEAN CORPUSCULAR HEMOGLOBIN 30 pg (27-31); MEAN CORPUSCULAR HGB CONC 35 g/dL (33-37); PLATELET COUNT (AUTO) 266 K/uL (140-450); RED BLOOD CELL COUNT(AUTO) 5.44 MIL/uL (4.20-6.10); RED CELL DISTRIBUTION WIDTH 12.6 % (11.6-13.7)
[2017-11-01 22:34] LABS: ANION GAP 14.4 (8-16); CARBON DIOXIDE 28.7 mmol/L (21-32); CREATININE 1.2 mg/dL (0.7-1.3); POTASSIUM 4.1 mmol/L (3.5-5.1)
[2017-11-01 22:39] LABS: ALBUMIN 3.6 g/dL (3.4-5.0); TOTAL BILIRUBIN 0.6 mg/dL (0.0-1.0)
[2017-11-01 22:42] LABS: LYMPHOCYTES % (MANUAL) 8 % (20-46); MONOCYTES % (MANUAL) 2 % (5-12)
[2017-11-02] MEDS ORDERED: MORPHINE SULFATE 4 MG/ML SYR IVP ONE (00:45)
[2017-11-02] MEDS ORDERED: NACL 0.9% 1,000 ML IV ONE (00:45)
[2017-11-02 01:35] VITALS: BP 108/71
== END 2017-11-02 01:35 | disposition home or self-care (01) ==
LOC: MED 21:02
DX: R10.12 Left upper quadrant pain (principal); R42 Dizziness and giddiness; F12.10 Cannabis abuse, uncomplicated; Z88.6 Allergy status to analgesic agent; Z88.8 Allergy status to other drugs, medicaments and biological substances
CPT/HCPCS: 36415; 80053; 83690; 85025; 96361; 96374; 99284; J2270; J7030

== ENCOUNTER 2018-01-27 19:14 | Emergency (ER) | payer MEDICAID ==
[~2018-01-27] VITALS: Ht 180.3 cm; Wt 59.0 kg
[2018-01-27 19:26] VITALS: BP 129/90
--- NOTE | 2018-01-27 19:30 | NUR ---
TO LOBBY A/W BED, BAO ROBERTSON NOTED
--- NOTE | 2018-01-27 20:00 | NUR ---
ASSUMED CARE OF PT AT THIS TIME. C/O EPIGASTRIC PAIN X 1 WEEK THAT IS EXACERBATED BY PO INTAKE. PT IS 5 DAYS S/P UPPER ENDOSCOPY. AAOX4 WITH EVEN AND STEADY GAIT; PATIENT STATES PAIN OF 8/10; VSS; PATIENT POSITIONED FOR COMFORT; HOB ELEVATED; BEDRAILS UP X2; BED DOWN. ER MD MADE AWARE OF PT STATUS. WILL CONTINUE TO MONITOR.
--- NOTE | 2018-01-27 20:01 | NUR ---
PT TAKEN TO BED 1
--- NOTE | 2018-01-27 20:18 | NUR ---
Dr. Gonzalez evaluating patient at bedside.
[2018-01-27] MEDS ORDERED: METOCLOPRAMIDE 10 MG/2 ML INJ VIAL IM ONE (20:25)
[2018-01-27] MEDS ORDERED: oxyCODONE/APAP 5/325 MG 1 TAB TAB PO ONE (20:25)
[2018-01-27 21:13] LABS: BASOPHILS % (AUTO) 0.7 % (0.0-2.0); EOSINOPHILS # (AUTO) 0.1 K/uL (0-0.4); EOSINOPHILS % (AUTO) 2.3 % (0.0-4.0); HEMATOCRIT 40.2 % (36-52); HEMOGLOBIN 13.6 g/dL (12.0-18.0); LYMPHOCYTES % (AUTO) 32.1 % (20.5-51.1); MEAN CORPUSCULAR HEMOGLOBIN 30 pg (27-31); MEAN CORPUSCULAR HGB CONC 34 g/dL (33-37); MEAN CORPUSCULAR VOLUME 89.1 fL (80-94); MONOCYTES # (AUTO) 0.6 K/uL (0.8-1.0); MONOCYTES % (AUTO) 10.6 % (1.7-9.3); NEUTROPHILS # (AUTO) 3.3 K/uL (1.8-7.7); NEUTROPHILS % (AUTO) 54.3 % (42.2-75.2); PLATELET COUNT (AUTO) 219 K/uL (140-450); RED BLOOD CELL COUNT(AUTO) 4.51 MIL/uL (4.20-6.10); RED CELL DISTRIBUTION WIDTH 13.7 % (11.6-13.7); WHITE BLOOD COUNT (AUTO) 6.1 K/uL (4.8-10.8)
[2018-01-27 21:34] LABS: APPEARANCE,URINE CLEAR (CLEAR); BILIRUBIN,URINE NEGATIVE (NEGATIVE); BLOOD, URINE NEGATIVE (NEGATIVE); COLOR,URINE YELLOW (YELLOW); LEUKOCYTE ESTERASE ,URINE NEGATIVE (NEGATIVE); NITRITE, URINE NEGATIVE (NEGATIVE); UGLUCOSE NEGATIVE (NEGATIVE)
[2018-01-27 21:38] LABS: ANION GAP 8.1 (8-16); BARBITURATE, URINE NEG. ng/ml (NEG <=200); BENZODIAZEPINE, URINE NEG. ng/mL (NEG <=200); CANNABINOID, URINE POS. ng/mL (NEG <=50); CARBON DIOXIDE 31.6 mmol/L (21-32); COCAINE, URINE NEG. ng/mL (NEG <=300); CREATININE 0.8 mg/dL (0.7-1.3); OPIATE, URINE NEG. ng/mL (NEG <=2000); PHENCYCLIDINE SCREEN,URINE NEG. ng/mL (NEG <=25); POTASSIUM 3.7 mmol/L (3.5-5.1)
[2018-01-27 21:43] LABS: ALBUMIN 3.9 g/dL (3.4-5.0); TOTAL BILIRUBIN 0.4 mg/dL (0.0-1.0)
--- NOTE | 2018-01-27 22:00 | NUR ---
PT SLEEPING. RESP. EVEN/UNLABORED. NAD. VSS. PT AWAITS MD DISPOSITION. WILL CONTINUE TO MONITOR.
--- NOTE | 2018-01-28 00:30 | NUR ---
PT AMBULATORY TO LOBBY IN STABLE CONDITION. PT AWAITS D/C PAPERWORK.
[2018-01-28 00:35] VITALS: BP 120/92
--- NOTE | 2018-01-28 00:35 | NUR ---
Patient discharged with v/s stable. Written and verbal after care instructions given and explained. Patient alert, oriented and verbalized understanding of instructions. Ambulatory with steady gait. All questions addressed prior to discharge. ID band removed. Patient advised to follow up with PMD. Rx of REGLAN AND PERCOCET given. Patient educated on indication of medication including possible reaction and side effects. Opportunity to ask questions provided and answered.
== END 2018-01-28 00:35 | disposition home or self-care (01) ==
LOC: MED 19:14
DX: R10.84 Generalized abdominal pain (principal); G89.29 Other chronic pain; R11.2 Nausea with vomiting, unspecified; F12.90 Cannabis use, unspecified, uncomplicated; Z88.6 Allergy status to analgesic agent; Z79.899 Other long term (current) drug therapy
CPT/HCPCS: 36415; 74021; 80053; 80305; 81003; 83690; 85025; 96372; 99285; J2765

== ENCOUNTER 2018-01-29 12:36 | Emergency (ER) | payer MEDICAID ==
[~2018-01-29] VITALS: Ht 180.3 cm; Wt 59.0 kg
[2018-01-29 12:47] VITALS: BP 125/63
[2018-01-29 14:58] LABS: BASOPHILS % (AUTO) 0.4 % (0.0-2.0); EOSINOPHILS # (AUTO) 0.1 K/uL (0-0.4); HEMATOCRIT 43.5 % (36-52); HEMOGLOBIN 14.5 g/dL (12.0-18.0); LYMPHOCYTES # (AUTO) 1.6 K/uL (2.0-11.5); MEAN CORPUSCULAR HEMOGLOBIN 30 pg (27-31); MEAN CORPUSCULAR HGB CONC 33 g/dL (33-37); MEAN CORPUSCULAR VOLUME 89.1 fL (80-94); MONOCYTES # (AUTO) 0.7 K/uL (0.8-1.0); MONOCYTES % (AUTO) 10.3 % (1.7-9.3); NEUTROPHILS % (AUTO) 63.3 % (42.2-75.2); PLATELET COUNT (AUTO) 227 K/uL (140-450); RED BLOOD CELL COUNT(AUTO) 4.89 MIL/uL (4.20-6.10); RED CELL DISTRIBUTION WIDTH 13.4 % (11.6-13.7); WHITE BLOOD COUNT (AUTO) 6.3 K/uL (4.8-10.8)
[2018-01-29] MEDS: ONDANSETRON 4 MG ODT PO ONE (15:02)
[2018-01-29] MEDS: ALUMINUM HYD/MAG/SIMETHICONE 30 ML UDC PO ONE (15:03)
[2018-01-29] MEDS: FAMOTIDINE 20 MG TAB PO ONE (15:03)
[2018-01-29] MEDS: DICYCLOMINE HCL LIQUID 10 MG/5 ML UDC PO ONE (15:04)
[2018-01-29 15:36] LABS: ANION GAP 9.4 (8-16); CARBON DIOXIDE 32.8 mmol/L (21-32); CREATININE 0.9 mg/dL (0.7-1.3); POTASSIUM 4.2 mmol/L (3.5-5.1)
[2018-01-29 15:42] LABS: ALBUMIN 4.4 g/dL (3.4-5.0); TOTAL BILIRUBIN 0.4 mg/dL (0.0-1.0)
[2018-01-29 16:08] VITALS: BP 120/61
== END 2018-01-29 16:08 | disposition home or self-care (01) ==
LOC: MED 12:36
DX: K29.70 Gastritis, unspecified, without bleeding (principal); F12.10 Cannabis abuse, uncomplicated; Z88.6 Allergy status to analgesic agent; Z88.8 Allergy status to other drugs, medicaments and biological substances; Z79.899 Other long term (current) drug therapy
CPT/HCPCS: 36415; 80053; 83690; 85025; 99284; S0119

== ENCOUNTER 2018-07-25 17:58 | Emergency (ER) | payer MEDICAID ==
[~2018-07-25] VITALS: Ht 180.3 cm; Wt 65.3 kg
[~2018-07-25 17:58] MED LIST changes: +ONDA-24 SL; -ONDA4ODT1 SL; +SENN-74 PO; -SENN-89 PO
[2018-07-25 18:17] VITALS: BP 129/84
--- NOTE | 2018-07-25 18:22 | NUR ---
VSS, AMB TO LOBBY
--- NOTE | 2018-07-25 20:00 | NUR ---
PT BIB SELF FOR ABD PAIN. PT REPORTS CHRONIC PANCREATITIS FOR YEARS. PT REPORTS DULL PAIN AT 7/10 THAT INCREASES WHEN HE EATS. PT REPORTS THAT HE SOMETIMES TO TAKE CREON WITH HIS MEALS. ABD IS FLAT, SOFT, TENDER TO TOUCH IN LUQ, AND BOWEL SOUNDS ACTIVE X4 QUADRANTS. ER MD TO SEE PT. WILL CONTINUE TO MONITOR.
[2018-07-25 20:22] LABS: BASOPHILS # (AUTO) 0.1 K/uL (0.00-0.22); EOSINOPHILS # (AUTO) 0.1 K/uL (0-0.4); EOSINOPHILS % (AUTO) 1.4 % (0.0-4.0); HEMATOCRIT 45.2 % (36-52); LYMPHOCYTES % (AUTO) 20.3 % (20.5-51.1); MEAN CORPUSCULAR HEMOGLOBIN 30 pg (27-31); MEAN CORPUSCULAR HGB CONC 33 g/dL (33-37); MEAN CORPUSCULAR VOLUME 89.7 fL (80-94); MONOCYTES # (AUTO) 0.9 K/uL (0.8-1.0); NEUTROPHILS # (AUTO) 6.8 K/uL (1.8-7.7); NEUTROPHILS % (AUTO) 68.3 % (42.2-75.2); PLATELET COUNT (AUTO) 243 K/uL (140-450); RED BLOOD CELL COUNT(AUTO) 5.03 MIL/uL (4.20-6.10); RED CELL DISTRIBUTION WIDTH 13.4 % (11.6-13.7); WHITE BLOOD COUNT (AUTO) 9.9 K/uL (4.8-10.8)
[2018-07-25 20:40] LABS: ANION GAP 9.5 (8-16); POTASSIUM 3.5 mmol/L (3.5-5.1)
[2018-07-25] MEDS ORDERED: PANTOPRAZOLE 40 MG TABEC PO ONE (20:45)
[2018-07-25 20:46] LABS: ALBUMIN 4.4 g/dL (3.4-5.0); TOTAL BILIRUBIN 0.3 mg/dL (0.0-1.0)
[2018-07-25 21:03] VITALS: BP 110/79
--- NOTE | 2018-07-25 21:03 | NUR ---
Patient discharged with v/s stable. Written and verbal after care instructions given and explained. Patient alert, oriented and verbalized understanding of instructions. Ambulatory with steady gait. All questions addressed prior to discharge. ID band removed. Patient advised to follow up with PMD. Rx of BLEPH-10 10% OPTHALMIC AND PROTONIX given. Patient educated on indication of medication including possible reaction and side effects. Opportunity to ask questions provided and answered.
== END 2018-07-25 21:03 | disposition home or self-care (01) ==
LOC: MED 17:58
DX: K29.70 Gastritis, unspecified, without bleeding (principal); H00.013 Hordeolum externum right eye, unspecified eyelid; Z88.6 Allergy status to analgesic agent
CPT/HCPCS: 36415; 80053; 83690; 85025; 99283

== ENCOUNTER 2019-02-13 08:53 | Inpatient (IN) | payer MEDICAID ==
[~2019-02-13] VITALS: Ht 180.3 cm; Wt 65.8 kg
[2019-02-13 09:09] VITALS: BP 127/93
[2019-02-13] MEDS ORDERED: SODIUM CHLORIDE FLUSH 10 ML SYR IVF STA (09:11)
[2019-02-13] MEDS ORDERED: AMYL-40 PO ×2 (09:13→17:35)
--- NOTE | 2019-02-13 09:15 | NUR ---
PT SENT TO LOBBY TO WAIT FOR AVAILABLE ER BED.
[2019-02-13 10:03] LABS: BASOPHILS % (AUTO) 1.1 % (0.0-2.0); EOSINOPHILS # (AUTO) 0.1 K/uL (0-0.4); EOSINOPHILS % (AUTO) 1.7 % (0.0-4.0); HEMOGLOBIN 14.5 g/dL (12.0-18.0); LYMPHOCYTES # (AUTO) 1.3 K/uL (2.0-11.5); LYMPHOCYTES % (AUTO) 31.6 % (20.5-51.1); MEAN CORPUSCULAR HEMOGLOBIN 30 pg (27-31); MEAN CORPUSCULAR HGB CONC 33 g/dL (33-37); MEAN CORPUSCULAR VOLUME 90.2 fL (80-94); MONOCYTES # (AUTO) 0.4 K/uL (0.8-1.0); MONOCYTES % (AUTO) 10.3 % (1.7-9.3); NEUTROPHILS # (AUTO) 2.3 K/uL (1.8-7.7); NEUTROPHILS % (AUTO) 55.3 % (42.2-75.2); PLATELET COUNT (AUTO) 231 K/uL (140-450); RED BLOOD CELL COUNT(AUTO) 4.87 MIL/uL (4.20-6.10); RED CELL DISTRIBUTION WIDTH 13.3 % (11.6-13.7); WHITE BLOOD COUNT (AUTO) 4.2 K/uL (4.8-10.8)
[2019-02-13 10:11] LABS: ANION GAP 11.9 (8-16); CARBON DIOXIDE 27.4 mmol/L (21-32); CREATININE 0.9 mg/dL (0.7-1.3); POTASSIUM 4.3 mmol/L (3.5-5.1); TOTAL BILIRUBIN 0.5 mg/dL (0.0-1.0)
--- NOTE | 2019-02-13 10:18 | NUR ---
PT C/O CONSTANT LUQ ABDOMINAL PAIN RADIATING TO LEFT-SIDED MEDIAL BACK FOR 3 DAYS. DENIES N/V/D. PT REPORT HAVING HX OF PANCREATITIS AND SMOKING MEDICAL MARIJUANA FOR PAIN. LAST TIME OF SMOKING MARIJUANA WAS THIS MORNING. PT INSPECTED PALE AND TIRED BUT CAN SPEAK FULL SENTENSE AND UNDERSTAND CONCEPTS. PATIENT STATES PAIN OF 9/10 AT THIS TIME; VSS; PATIENT POSITIONED FOR COMFORT; HOB ELEVATED; BEDRAILS UP X1; BED DOWN. ER MD MADE AWARE OF PT STATUS.
[2019-02-13 10:25] LABS: APPEARANCE,URINE CLEAR (CLEAR); BILIRUBIN,URINE NEGATIVE (NEGATIVE); BLOOD, URINE NEGATIVE (NEGATIVE); COLOR,URINE YELLOW (YELLOW); LEUKOCYTE ESTERASE ,URINE NEGATIVE (NEGATIVE); NITRITE, URINE NEGATIVE (NEGATIVE); PH,URINE 7.5 (5.0-9.0); UGLUCOSE NEGATIVE (NEGATIVE)
--- NOTE | 2019-02-13 11:30 | NUR ---
PT IS RESTING IN BED WITH VSS.
[2019-02-13] MEDS ORDERED: HYDROmorphone PFS 2 MG/ML SYR IVP ONE (12:30)
--- NOTE | 2019-02-13 13:30 | NUR ---
PT LAYING IN BED, RR EVEN AND UNLABORED. VSS. REPORTS LUQ PAIN RADIATING TO L BACK. ADMINISTERED 0.5MG DILAUDID IVP WITH EDUCATION, PT VERBALIZED UNDERSTANDING, TOLERATED MED WELL. ALL NEEDS MET.
--- NOTE | 2019-02-13 13:51 | NUR ---
PT IS RESTING IN BED WITH VSS.
[2019-02-13] MEDS ORDERED: NACL 0.9% 1,000 ML IV ONE (14:30)
--- NOTE | 2019-02-13 15:15 | NUR ---
PT IS RESTING IN BED WITH EYES CLOSED. VSS.
--- NOTE | 2019-02-13 16:18 | NUR ---
PT IS RESTING IN BED WITH EYES CLOSED. VSS.
[2019-02-13] MEDS: NACL 0.9% 1,000 ML IV SCH (17:06)
[2019-02-13] MEDS ORDERED: DOCUSATE SODIUM 100 MG GELCAP PO PRN (17:10)
[2019-02-13] MEDS ORDERED: ACETAMINOPHEN 325 MG TAB PO PRN (17:10)
[2019-02-13] MEDS ORDERED: ONDANSETRON 4 MG/2 ML VIAL IM/IVP PRN (17:10)
[2019-02-13] MEDS ORDERED: KETOROLAC 15 MG/ML VIAL IVP PRN (17:10)
--- NOTE | 2019-02-13 17:50 | NUR ---
Patient will be admitted to care of Chronic Pancreatitis. Admited to med-surg. Will go to room 111B. Belongings list completed. Report to HALLEY Cooley.
--- NOTE | 2019-02-13 17:55 | NUR ---
VS UPON ADMISSION: BP 138/89, HR 56, O2 99%, TEMP 97.8, RR 16.
--- NOTE | 2019-02-13 17:55 | NUR ---
RECEIVED PT FROM ED NURSE JACINTA. PT IS AWAKE AND ALERT, AMBULATORY AND ABLE TO MAKE NEEDS KNOWN. IV SITE IS IN THE L AC, 20 G. SKIN IS INTACT, PT IS ON ROOM AIR. PT IS C/O ABD PAIN. PT WAS GIVE THE CALL LIGHT WITHIN REACH AND EXPLAINED ITS USE.
[2019-02-13 17:58] LABS: PROTHROMBIN TIME 12.1 secs (10.8-13.4)
[2019-02-13 18:05] LABS: BARBITURATE, URINE NEG. ng/ml (NEG <=200); BENZODIAZEPINE, URINE NEG. ng/mL (NEG <=200); CANNABINOID, URINE POS. ng/mL (NEG <=50); COCAINE, URINE NEG. ng/mL (NEG <=300); OPIATE, URINE NEG. ng/mL (NEG <=2000); PHENCYCLIDINE SCREEN,URINE NEG. ng/mL (NEG <=25)
--- NOTE | 2019-02-13 18:08 | NUR ---
PT UPGRADED TO TELE.
[2019-02-13 18:12] LABS: AMYLASE 79 U/L (25-115); MAGNESIUM 1.8 mg/dL (1.8-2.4); PHOSPHORUS 2.9 mg/dL (2.5-4.9); THYROID STIMULATING HORMONE 0.83 uIU/mL (0.34-3.74)
[2019-02-13] MEDS: MORPHINE SULFATE 2 MG/ML SYR IVP PRN ×3 (18:17→23:46)
--- NOTE | 2019-02-13 18:20 | NUR ---
PT C/O 9/10 UPPER ABD PAIN, PRN IV MORPHINE ADMINISTERED.
--- NOTE | 2019-02-13 19:15 | NUR ---
ENDORSED PT TO DIRECTOR OF ONCOLOGY NURSE MARTÍNEZ IN STABLE CONDITION
[2019-02-13 19:19] LABS: LACTATE DEHYDROGENASE 167 U/L (85-227)
[2019-02-13 20:00] VITALS: BP 137/92
--- NOTE | 2019-02-13 20:00 | NUR ---
RECEIVED PATIENT REPORT AT BEDSIDE. PATIENT, AWAKE, ALERT AND ORIENTED. NO S/S OF DISTRESS. PATIENT VERBALIZED UNDERSTANDING ABOUT HIS NPO STATUS. PATIENT ON TELE MONITORING. BED LOWERED WITH CALL LIGHT WITHIN REACH. WILL CONTINUE TO MONITOR
[2019-02-14] VITALS: BP 109/69
[2019-02-14] MEDS: NACL 0.9% 1,000 ML IV SCH ×2 (00:37→06:32)
--- NOTE | 2019-02-14 02:04 | NUR ---
PT ASLEEP IN BED AT THIS TIME. NO S/S OF DISTRESS
[2019-02-14 04:00] VITALS: BP 126/87
--- NOTE | 2019-02-14 04:30 | NUR ---
PT ASLEEP IN BED. NO S/S OF DISTRESS NOTED
[2019-02-14] MEDS: MORPHINE SULFATE 2 MG/ML SYR IVP PRN (04:42)
[2019-02-14 07:06] LABS: ANION GAP 12.9 (8-16); CARBON DIOXIDE 28.5 mmol/L (21-32); CREATININE 0.9 mg/dL (0.7-1.3); POTASSIUM 4.4 mmol/L (3.5-5.1)
[2019-02-14 07:09] LABS: BASOPHILS # (AUTO) 0.1 K/uL (0.00-0.22); EOSINOPHILS # (AUTO) 0.1 K/uL (0-0.4); EOSINOPHILS % (AUTO) 2.2 % (0.0-4.0); HEMATOCRIT 41.3 % (36-52); HEMOGLOBIN 13.6 g/dL (12.0-18.0); LYMPHOCYTES # (AUTO) 1.6 K/uL (2.0-11.5); LYMPHOCYTES % (AUTO) 29.6 % (20.5-51.1); MEAN CORPUSCULAR HEMOGLOBIN 30 pg (27-31); MEAN CORPUSCULAR HGB CONC 33 g/dL (33-37); MEAN CORPUSCULAR VOLUME 90.1 fL (80-94); MONOCYTES # (AUTO) 0.6 K/uL (0.8-1.0); MONOCYTES % (AUTO) 10.4 % (1.7-9.3); NEUTROPHILS % (AUTO) 56.8 % (42.2-75.2); PLATELET COUNT (AUTO) 217 K/uL (140-450); RED BLOOD CELL COUNT(AUTO) 4.59 MIL/uL (4.20-6.10); RED CELL DISTRIBUTION WIDTH 13.3 % (11.6-13.7); WHITE BLOOD COUNT (AUTO) 5.3 K/uL (4.8-10.8)
[2019-02-14 07:15] LABS: MAGNESIUM 1.7 mg/dL (1.8-2.4); PHOSPHORUS 2.9 mg/dL (2.5-4.9)
[2019-02-14 07:16] LABS: CHOL/HDL RATIO 2.8 (1-4.5)
--- NOTE | 2019-02-14 07:21 | NUR ---
PATIENT REPORT GIVEN AT BEDSIDE. PATIENT ENDORSED IN STABLE CONDITION
--- NOTE | 2019-02-14 07:27 | NUR ---
RECEIVED REPORT FROM CSR RETAIL NURSE. PT [id number]. PT ON SOAP CHIPPER. RESPIRATIONS EVEN AND UNLABORED ON RA. IV ON LT FA 20 GA RUNNING IVF PER ORDER. ABD SOFT, ACTIVE BS. PT IS AWARE THAT HE IS ON STRICT I&O, AND IS ON NPO DIET D/T DX PANCREATITIS. SKIN IS INTACT, WARM TO TOUCH. REVIEWED POC WITH PT, PT VERBALIZED UNDERSTANDING.
[2019-02-14 08:00] VITALS: BP 128/74
[2019-02-14] MEDS ORDERED: NON-FORMULARY ITEM (Lipase/Protease/Amylase (Creon Dr 36,000 Units Capsule) 1 ECC) PO SCH (08:00)
[2019-02-14] MEDS ORDERED: HYDROcodone/APAP 5/325 MG 1 TAB TAB PO PRN (08:05)
[2019-02-14] MEDS: AMYLASE/LIPASE/PROTEASE 1 CAPDR PO SCH ×2 (08:19→12:09)
--- NOTE | 2019-02-14 08:19 | NUR ---
GIVEN MEDICATION PER ORDER, PT IS AWARE OF INDICATION AND POTENTIAL SIDE EFFECTS. GIVEN NORCO PRN FOR PAIN. WILL REASSESS WITHIN 1 HOUR.
--- NOTE | 2019-02-14 08:20 | NUR ---
PATIENT HAS BEEN SCREENED AND CATEGORIZED MODERATE NUTRITION RISK. PATIENT WILL BE SEEN WITHIN 3-5 DAYS OF ADMISSION. 02/16/19 02/18/[address]
[2019-02-14] MEDS ORDERED: MAGNESIUM OXIDE 400 MG TAB PO SCH (10:00)
--- NOTE | 2019-02-14 10:34 | NUR ---
GIVEN MAGNESIUM OXIDE PER ORDER, PT IS AWARE OF INDICATION AND MAGNESIUM LEVEL.
[2019-02-14 12:00] VITALS: BP 128/74
--- NOTE | 2019-02-14 12:30 | NUR ---
PT GIVEN HOMELESS RESOURCES PACKET. WILL ORDER PACKED LUNCH AND BUS PASSES UPON DISCHARGE.
--- NOTE | 2019-02-14 13:20 | NUR ---
PT HAS BEEN DISCHARGED. ALL PAPERWORK SIGNED, ALL QUESTIONS ANSWERED. ALL BELONGINGS, PACKED LUNCH ANG 2 BUS PASSES IN PT POSSESSION. IV DISCONTINUED WITH CANNULA INTACT. WRISTBANDS REMOVED. PT REFUSED WHEELCHAIR, TRANSFERRED OUT OF UNIT WITH STEADY GAIT, RN AT SIDE. PT IS IN STABLE CONDITION.
== END 2019-02-14 13:20 | disposition home or self-care (01) | DRG 282 ==
LOC: MED 08:53 → MTU 17:06
PROVIDERS: ADMIT General Practice; ATTEND General Practice
DX: K86.1 Other chronic pancreatitis (principal); D70.9 Neutropenia, unspecified; E72.20 Disorder of urea cycle metabolism, unspecified; E83.42 Hypomagnesemia; F32.9 Major depressive disorder, single episode, unspecified; R00.1 Bradycardia, unspecified; F12.90 Cannabis use, unspecified, uncomplicated; Z88.8 Allergy status to other drugs, medicaments and biological substances; Z86.73 Personal history of transient ischemic attack (TIA), and cerebral infarction without residual deficits
CPT/HCPCS: 36415; 71045; 74170; 76705; 80048; 80053; 80305; 81003; 82140; 82150; 83036; 83615; 83690; 83735; 83880; 84100; 84443; 84484; 85025; 85610; 85730; 87081; 96361; 96374; 99291; G0482; J1170; J2270; J7030; Q0092; Q9967